=== PATIENT | female | born 1965 | race Caucasian/White ===

== ENCOUNTER 2018-03-09 13:33 | Emergency (ER) | payer OTHER ==
[~2018-03-09] VITALS: Ht 162.6 cm; Wt 72.6 kg
== END 2018-03-09 16:03 | disposition home or self-care (01) ==
LOC: ER 13:33
DX: S16.1XXA Strain of muscle, fascia and tendon at neck level, initial encounter (principal); V49.09XA Driver injured in collision with other motor vehicles in nontraffic accident, initial encounter; Y93.89 Activity, other specified; Y92.488 Other paved roadways as the place of occurrence of the external cause; Y99.8 Other external cause status

== ENCOUNTER 2018-04-09 11:23 | Emergency (ER) | payer OTHER ==
[~2018-04-09] VITALS: Ht 162.6 cm; Wt 85.7 kg
[~2018-04-09 11:23] MED LIST: AVAPRO150 MG; HYDROCHLOROTH12.5 M1; HYZAAR 100-12.1 EACH; SYNTHROID100 MCG
== END 2018-04-09 15:24 | disposition home or self-care (01) ==
LOC: ER 11:23
DX: R42 Dizziness and giddiness (principal); E11.9 Type 2 diabetes mellitus without complications

== ENCOUNTER 2020-04-25 05:36 | Emergency (ER) | payer OTHER ==
[~2020-04-25] VITALS: Ht 162.6 cm; Wt 83.9 kg
[2020-04-25] MEDS ORDERED: PREVACID15 MG PO (08:59)
== END 2020-04-25 09:09 | disposition home or self-care (01) ==
LOC: ER 05:36
DX: T54.91XA Toxic effect of unspecified corrosive substance, accidental (unintentional), initial encounter (principal); R06.02 Shortness of breath; R11.2 Nausea with vomiting, unspecified; Y92.89 Other specified places as the place of occurrence of the external cause